=== PATIENT | female | born 1960 | race Caucasian/White ===

== ENCOUNTER 2016-10-08 02:38 | Emergency (ER) | payer BC ==
--- NOTE | 2016-10-08 04:01 | ED ---
Mallory Mcfarland Rebecca, scribed for Ermias Gunter MD on 10/08/16 at 0348 . Upper Extremity Pain - HPI Summary HPI Summary: Pt is a 56 y/o F who presents to ED c/o L wrist pain s/p fall. At approximately 0200 this morning the pt was walking outside without any lights and fell down 4 steps. Pain is currently severe, ranked 8/10 and aggravated by movement, alleviated by nothing. Has not taken anything to treat the pain though ice was applied upon arrival and assessment. 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 Severity Currently: Severe - 8/10 Pain Location: Wrist - Left Aggravating Factor(s): Movement Alleviating Factor(s): Nothing Associated Signs & Symptoms: Positive: Negative - Allergies/Home Medications Allergies/Adverse Reactions: Allergies Allergy/AdvReac Type Severity Reaction Status Date / Time No Known Allergies Allergy Verified 06/03/16 11:06 PMH/Surg Hx/FS Hx/Imm Hx Endocrine/Hematology History: Denies: Hx Diabetes Cardiovascular History: Reports: Hx Hypertension Denies: Hx Coronary Artery Disease - Cancer History Hx Chemotherapy: No Hx Radiation Therapy: No Infectious Disease History: No Infectious Disease History: Denies: Traveled Outside the [place] in Last 30 Days - Family History Known Family History: Positive: Other - TIA (mother), Parkinson's (brother) - Social History Alcohol Use: Daily Substance Use Type: Reports: None Smoking Status (MU): Heavy Every Day Tobacco Smoker Review of Systems Negative: Fever Positive: Arthralgia - L wrist pain s/p fall All Other Systems Reviewed And Are Negative: Yes Physical Exam Triage Information Reviewed: Yes Vital Signs On Initial Exam: Initial Vitals Temp Pulse Resp BP Pulse Ox 98.3 F 109 18 155/100 97 10/08/16 03:04 10/08/16 03:04 10/08/16 03:04 10/08/16 03:04 10/08/16 03:04 Vital Signs Reviewed: Yes Appearance: Positive: Well-Appearing, Pain Distress - mild discomfort Skin: Positive: Warm Head/Face: Positive: Normal Head/Face Inspection ENT: Positive: Hearing grossly normal Respiratory/Lung Sounds: Positive: Breath Sounds Present Musculoskeletal: Positive: Other - lt wrist mild diffuse swelling, painful movement nvi Neurological: Positive: Normal Gait - Mahanoy Plane Coma Scale Coma Scale Total: 15 Procedures - Splinting Hand-Made Type: orthoglass Splint: thumb spica Pre-Proc Neuro Vasc Exam: normal Post-Proc Neuro Vasc Exam: normal Diagnostics - Vital Signs Vital Signs Temp Pulse Resp BP Pulse Ox 10/08/16 03:04 98.3 F 109 18 155/100 97 - Laboratory Lab Statement: Any lab studies that have been ordered have been reviewed, and results considered in the medical decision making process. - Radiology L Wrist XR Xray Interpretation: Positive (See Comments) - Distal radial fracture Radiology Interpretation Completed By: ED Physician Course/Dx - Course Assessment/Plan: Pt is a 56 y/o F who presents to ED c/o L wrist pain s/p fall. At approximately 0200 this morning the pt was walking outside without any lights and fell down 4 steps. Pain is currently severe, ranked 8/10 and aggravated by movement, alleviated by nothing. Has not taken anything to treat the pain though ice was applied upon arrival and assessment. Wrist XR reveals a distal radial fracture, as read by ED physician. Splint was applied in the ED. Pt will be D/C to home with Dx of wrist fracture with an Rx for Motrin and a follow up with orthopedics. Pt understands and agrees. Elevated BP noted and advised to f/u with PCP. - Diagnoses Provider Diagnoses: Wrist fracture Discharge - Discharge Plan Condition: Improved Disposition: HOME Prescriptions: Ibuprofen TAB* [Motrin TAB* 600 MG] 600 mg PO Q6H #30 tab Patient Education Materials: Wrist Fracture in Adults (ED) Referrals: Alen Larsen MD [Medical Doctor] - (Follow up in 2-3 days. ) The documentation as recorded by the Mallory gatica Rebecca accurately reflects the service I personally performed and the decisions made by , Ermias Gunter MD.
[2016-10-08 04:23] VITALS: BP 139/92
--- NOTE | 2016-10-08 07:44 | RAD ---
INDICATION: Left wrist injury. TECHNIQUE: 3 views of the left wrist were obtained. FINDINGS: There is diffuse soft tissue swelling present. There is a comminuted impacted fracture of the distal radius. The fracture extends to the distal articular margin. There is slight distraction of some of the distal fracture fragments. In addition there is a calcific density which projects dorsally over the carpal bones possibly representing a carpal bone fracture versus soft tissue calcification. IMPRESSION: 1. COMMINUTED DISPLACED INTRA-ARTICULAR FRACTURE OF THE DISTAL RADIUS. 2. SMALL AREA OF CALCIFICATION DORSAL TO THE CARPAL BONES POSSIBLY REPRESENTING A CARPAL BONE FRACTURE VERSUS SOFT TISSUE SWELLING. CONSIDER A CT OF THE WRIST FOR FURTHER EVALUATION.
== END 2016-10-08 04:22 | disposition home or self-care (01) ==
LOC: ED 02:38
DX: S62.102A Fracture of unspecified carpal bone, left wrist, initial encounter for closed fracture (principal); W19.XXXA Unspecified fall, initial encounter; Y93.9 Activity, unspecified; Y92.9 Unspecified place or not applicable; Y99.9 Unspecified external cause status; F17.210 Nicotine dependence, cigarettes, uncomplicated
CPT/HCPCS: 99282

== ENCOUNTER 2016-10-21 06:57 | Day surgery (SDC) | payer BC ==
--- NOTE | 2016-10-20 11:04 | HP ---
PREOPERATIVE HISTORY AND PHYSICAL: DATE OF ADMISSION/SURGERY: 10/21/16 DATE OF OFFICE VISIT/ENCOUNTER: 10/19/16 ATTENDING SURGEON: Carolyn Posey MD * (DICTATED BY FLASH TEIXEIRA) PROCEDURE: Open reduction and internal fixation, left wrist. HISTORY OF PRESENT ILLNESS: This is a 56-year-old female who sustained injury to her left wrist on 10/08/16. She tripped up some stairs while going outside to look at stars in the middle of the night, it was dark and she fell down 2 to 3 steps and landed on her outstretched left arm. She was seen in the [facility] Emergency Room the next morning where x-rays were taken and she was diagnosed with a wrist fracture. She was referred to [facility] where she saw Dr. Bassett initially. He performed a closed reduction and referred the patient to Dr. Posey for further evaluation and treatment considerations. The patient had a CT scan that showed marked comminution at the distal radius and intraarticular involvement. It is an unstable fracture. The patient denies any associated numbness or tingling. After reviews of x-rays and CT scan and evaluation of the patient by Dr. Posey, Dr. Posey is recommending surgical intervention at this time in the form of an open reduction and internal fixation of the left wrist. The patient has consented to proceed. PAST MEDICAL HISTORY: Hypertension. PAST SURGICAL HISTORY: None. CURRENT MEDICATIONS: 1. Amlodipine besylate 2.5 mg daily. 2. Aspirin 325 mg p.r.n. pain. 3. Ibuprofen 600 mg t.i.d. p.r.n. pain. 4. Vitamin D 400 units/mL 1 mL daily. ALLERGIES: MORPHINE, the patient reports that it is not effective. FAMILY MEDICAL HISTORY: Noncontributory. SOCIAL HISTORY: The patient is not currently working. 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 She is a smoker. She smoked regularly up until 13 years ago, a half pack a day for 10 years. Currently, she still smokes on rare occasion. She denies recreational drug use. She admits to drinking alcohol on regular occasion, usually wine. REVIEW OF SYSTEMS: General: Negative for fevers, chills, or night sweats. No known anesthesia problems. HEENT: Negative for headache, lightheadedness, or syncopal episodes. Integumentary: Negative for abrasions, lesions, or open wounds. Cardiothoracic: Positive for hypertension. Negative for chest pain, palpitations, or edema. Pulmonary: Negative for shortness of breath with exertion, chronic cough, COPD. GI: Negative for nausea, vomiting, diarrhea, or constipation or GERD. : Negative for nocturia, urinary frequency, urgency , history of UTIs, or kidney problems. Musculoskeletal: Positive for current complaint. Negative for chronic or intermittent back pain or history of fractures. Neurological: Negative for paresthesias, numbness, history of seizure, stroke, or epilepsy. Endocrine: Negative for diabetes or thyroid issues. Hematologic: Negative for easy bruising, anemia, excessive bleeding, or history of DVT. Infectious Disease: Negative for history of MRSA, hepatitis C, or HIV. PHYSICAL EXAMINATION GENERAL: Well-developed, well-nourished 56-year-old female in no acute distress. VITAL SIGNS: Height 5 feet 9 inches, weight 145 pounds, blood pressure 138/88. HEENT: Normocephalic, atraumatic. Pupils are equal, round, and reactive to light and accommodation. NECK: Supple. No palpable lymph nodes. Throat is clear. PULMONARY: Lungs are clear to auscultation bilaterally. No wheezes, rales, or rhonchi. CARDIOVASCULAR: Regular rate and rhythm. S1, S2. No murmurs, rubs, or gallops. No edema. ABDOMEN: Positive bowel sounds, soft, nontender. MUSCULOSKELETAL: On exam of the patient's left wrist, it is maintained in a sugar tong splint. There is mild swelling in the fingers. She has good motion in her fingers and neurovascular function is intact. NEUROLOGICAL: Alert and oriented x3. Cranial nerves II through XII are intact. IMAGING STUDIES: X-ray and CT scan of the left wrist show a very distal intraarticular comminuted fracture of the distal radius. IMPRESSION: Left distal radius fracture. PLAN: The patient is scheduled to undergo an open reduction and internal fixation of her left wrist on 10/21/[address] Posey. She will return to the office 10 to 14 days postop for followup and suture removal. A prescription for Ultracet was e- scribed to the patient's pharmacy for postoperative pain management. FLASH TEIXEIRA [id number]/[facility] #: [id number] [facility]
[~2016-10-21 06:57] MED LIST: Buffered Lidocaine 0.9% SYRIN* 5 ML/SYR SYRINGE INTRADERM ONE; Ibuprofen TAB* 600 MG ONE; Ibuprofen TAB* 600 MG PO ONE; Sodium Citrate/Citric Acid* 15 ML UDC ONE; Sodium Citrate/Citric Acid* 15 ML UDC PO ONE
[2016-10-21] MEDS ORDERED: ceFAZolin 2 GM PREMIX (*) 50 ML IVPB ONE (07:26)
[2016-10-21] MEDS ORDERED: Bupivacaine 0.5% W/EPI SDV* 30 ML VIAL ONE (08:06)
[2016-10-21] MEDS ORDERED: Bupivacaine 0.5% SDV PF* 30 ML VIAL ONE (08:09)
[2016-10-21] MEDS ORDERED: fentaNYL* 50 MCG/ML 2 ML VIAL (100 MCG VIAL) ONE ×2 (08:19→09:28)
[2016-10-21] MEDS ORDERED: Midazolam* 1 MG/ML 5 ML VIAL (5 MG) ONE (08:24)
[2016-10-21] MEDS ORDERED: Bupivacaine 0.25% SDV* 30 ML ONE (08:26)
[2016-10-21] MEDS ORDERED: HYDROmorphone INJ* 1 MG/ML CARPUJECT SYRINGE IV PRN (09:17)
[2016-10-21] MEDS ORDERED: HYDROcodone/ACETAMIN 5-325 MG* 1 TAB PO PRN (09:17)
[2016-10-21] MEDS ORDERED: Ondansetron INJ* 2 MG/ML VIAL IV PRN (09:17)
[2016-10-21] MEDS ORDERED: DiMENhydriNATE IV* 50 MG/ML VIAL IV PUSH PRN (09:17)
[2016-10-21] MEDS ORDERED: fentaNYL* 50 MCG/ML 2 ML VIAL (100 MCG VIAL) IV PRN (09:17)
[2016-10-21] MEDS ORDERED: Propofol* 10 MG/ML 20 ML BTL IV PUSH ONE (09:28)
[2016-10-21 10:47] VITALS: BP 119/83
--- NOTE | 2016-10-21 14:48 | RAD ---
INDICATION: Left wrist fracture, trauma COMPARISONS: October 08, 2016 TECHNIQUE: Fluoroscopy was provided for a surgical procedure. Total fluoroscopy time is: 4 minutes, 21 seconds FINDINGS: Spot images demonstrate placement of a fixation plate across the left wrist. IMPRESSION: FLUOROSCOPY WAS PROVIDED FOR A SURGICAL PROCEDURE CPT II Codes: 6045F
--- NOTE | 2016-10-22 06:20 | OP ---
DATE OF OPERATION: 10/21/16 MERGED WITH [facility] DATE OF : 58 SURGEON: Carolyn Posey MD. ROLLED HAM LACER: FLASH Tillman. ANESTHESIA: Axillary block and sedation. PRE-OP DIAGNOSIS: Distal radius fracture of the left wrist. POST-OP DIAGNOSIS: Distal radius fracture of the left wrist. OPERATIVE PROCEDURE: Open reduction internal fixation of the left distal radius. ESTIMATED BLOOD LOSS: Zero. TOURNIQUET TIME: About 45 minutes. INDICATIONS FOR PROCEDURE: Linsey Naranjo is a 56-year-old woman who suffered a fracture of her left distal radius when she fell off the porch. She had a very comminuted DICTATION ENDS ABRUPTLY. [id number]/[facility] #: [id number] MTDD
--- NOTE | 2016-10-22 06:37 | OP ---
DATE OF OPERATION: 10/21/16 - [facility] DATE OF : 58 SURGEON: Carolyn Posey MD DIRECTOR OF REHABILITATION AND WELLNESS: FLASH Tillman ANESTHESIA: Axillary block. PRE-OP DIAGNOSIS: Distal radius fracture on the left. POST-OP DIAGNOSIS: Distal radius fracture on the left. OPERATIVE PROCEDURE: Open reduction and internal fixation of the left distal radius. ESTIMATED BLOOD LOSS: Zero. TOURNIQUET TIME: About 45 minutes. INDICATION FOR PROCEDURE: Linsey Naranjo is a 56-year-old woman who fell on to her outstretched left hand suffering a fracture of the distal radius, fracture is very comminuted and very distal. She had reduction done by Dr. Bassett but because of the unstable nature of the fracture, she presents for ORIF. DESCRIPTION OF PROCEDURE: The patient was brought to the operating room, was given an axillary block anesthetic and placed in the supine position on the operating table with tourniquet around the left upper arm. The skin of her left upper extremity was prepped and draped in the usual sterile fashion. The hand and forearm were exsanguinated and tourniquet elevated to 250 mmHg. Preliminary reduction was performed to assure that we get a good reduction. The hand was visualized on the AP and lateral views and found to be satisfactory. A 1-1/2 inch incision was made over the second metacarpal and a 2 -inch incision made over the mid aspect of the radius for the appropriate sides of the TriMed bridge plate. We dissected bluntly down to the periosteum of the second metacarpal and also bluntly down to the radius protecting the radial sensory nerve and splitting the ECRL and ECRB tendon. The plate was then found proximal to distal across the wrist joint while the fracture fragments were held in reduction. The plate was secured with 1 distal screw and 3 distal holes was placed on the distal aspect of the second metacarpal and then again the bone reduction was performed given the appropriate length through the fracture fragment. The plate was then secured with single screw in the proximal aspect of the plate and then used the distraction device to change the pressure off the fracture fragments at the articular surface. Next, we made sure that the fingers could be placed into the holes and the remainder of the screws were then placed in the distal portion of the plate and the proximal portion of the plate. With initial hardware and fracture fragments, we checked on the C- arm in the AP and lateral views and found to be satisfactory. There was good radial . Because of the very small nature of the fracture fragments, it was decided not to do any fragment fixation. The wounds were irrigated. Skin edges were reapproximated with 4-0 nylon suture. The wound was dressed with Xeroform, 4x4, Webril, and a sugar-tong splint. The patient tolerated the procedure well and was brought to the recovery room in good condition. [id number]/[facility] #: [id number] [facility]
--- NOTE | 2016-10-26 03:25 | OP ---
CC: Dr. Posey OPERATIVE REPORT: DATE OF OPERATION: 10/21/16 ADDENDUM: "There are 2 blanks in the operative note. The first one should say oval and the second one should say inclination." [id number]/[facility] #: [id number] TANK
== END 2016-10-21 11:04 | disposition home or self-care (01) ==
LOC: OREAST 06:57
PROVIDERS: ATTEND Orthopaedic Surgery
DX: S52.572A Other intraarticular fracture of lower end of left radius, initial encounter for closed fracture (principal); W10.9XXA Fall (on) (from) unspecified stairs and steps, initial encounter; Y92.9 Unspecified place or not applicable; I10 Essential (primary) hypertension; Z79.82 Long term (current) use of aspirin; Z88.5 Allergy status to narcotic agent; Z72.0 Tobacco use
CPT/HCPCS: 76000; A9270-GY; C1713; C1776; J0690; J2250; J2704; J3010

== ENCOUNTER 2016-11-01 15:24 | Emergency (ER) | payer BC ==
[2016-11-01 16:02] VITALS: BP 129/95
--- NOTE | 2016-11-01 17:47 | UC ---
Skin Complaint HPI - HPI Summary HPI Summary: WAS SHAVING TODAY AROUND NOON WHEN SHE NICKED HER LEFT MEDIAL ANKLE WITH THE RAZOR. HAS A TINY ABRASION BUT STATES SHE COULD NOT GET IT TO STOP BLEEDING AT HOME SO SHE CAME IN HERE. IS REQUESTING SKIN GLUE. UTD TETANUS. AT TIME OF EXAM BLEEDING HAS STOPPED. - History of Current Complaint Chief Complaint: UCLaceration Time Seen by Provider: 11/01/16 16:18 Stated Complaint: LEG LACERATION Hx Obtained From: Patient Onset/Duration: Sudden Onset, Lasting Hours, Still Present Timing: Constant Onset Severity: Mild Current Severity: None Pain Intensity: 0 Pain Scale Used: 0-10 Numeric Location: Discrete - LEFT MEDIAL ANKLE Aggravating Factor(s): Nothing Alleviating Factor(s): Other - ELEVATION AND PRESSURE Associated Signs & Symptoms: Positive: Negative - Allergy/Home Medications Allergies/Adverse Reactions: Allergies Allergy/AdvReac Type Severity Reaction Status Date / Time OPIOIDS Allergy Severe See Comment Uncoded 11/01/16 16:02 Review of Systems Constitutional: Negative Skin: Other - TINY ABRASION Respiratory: Negative Cardiovascular: Negative Gastrointestinal: Negative All Other Systems Reviewed And Are Negative: Yes PMH/Surg Hx/FS Hx/Imm Hx Cardiovascular History: Hypertension - Surgical History Surgical History: Yes Surgery Procedure, Year, and Place: ORIF LEFT FOREARM - Family History Known Family History: Positive: Other - TIA (mother), Parkinson's (brother) - Social History Alcohol Use: Occasionally Alcohol Amount: 2 glasses wine with dinner Substance Use Type: None Smoking Status (MU): Current Every Day Smoker Amount Used/How Often: reports down to 2 cigs per day (was 1 ppd for 25 years) Physical Exam Triage Information Reviewed: Yes Appearance: Well-Appearing, No Pain Distress, Well-Nourished Vital Signs: Initial Vital Signs Temp 97.9 F 11/01/16 15:56 Pulse 90 11/01/16 15:56 Resp 16 11/01/16 15:56 BP 129/95 11/01/16 15:56 Pulse Ox 99 11/01/16 15:56 Vital Signs Reviewed: Yes Eyes: Positive: Conjunctiva Clear ENT: Positive: Hearing grossly normal Neck: Positive: Supple Respiratory: Positive: No respiratory distress, No accessory muscle use Cardiovascular: Positive: Pulses Normal Abdomen Description: Positive: Soft Musculoskeletal: Positive: No Edema Neurological: Positive: Alert Psychological: Positive: Age Appropriate Behavior Skin: Positive: Other - PINPOINT ABRASION LEFT MEDIAL ANKLE. NO ACTIVE BLEEDING Course/Dx - Course Course Of Treatment: SKIN GLUE APPLIED. NO ACTIVE BLEEDING AT DISCHARGE - Diagnoses Provider Diagnoses: ABRASION LEFT MEDIAL ANKLE Discharge - Discharge Plan Condition: Stable Disposition: HOME Patient Education Materials: Abrasion (ED) Referrals: Brittny Wei MD [Primary Care Provider] - If Needed Additional Instructions: GLUE APPLIED. SEEK FOLLOW-UP IF YOU DEVELOP SPREADING REDNESS OF THE SKIN, PURULENT DRAINAGE, FEVER, INCREASED PAIN OR ANY OTHER CONCERNING SYMPTOMS.
== END 2016-11-01 17:06 | disposition home or self-care (01) ==
LOC: UCEAST 15:24
DX: S91.012A Laceration without foreign body, left ankle, initial encounter (principal); I10 Essential (primary) hypertension; F17.210 Nicotine dependence, cigarettes, uncomplicated; W45.8XXA Other foreign body or object entering through skin, initial encounter; Y93.89 Activity, other specified; Y92.89 Other specified places as the place of occurrence of the external cause; Z88.5 Allergy status to narcotic agent
CPT/HCPCS: 99211; G0463

== ENCOUNTER 2017-01-17 10:45 | Day surgery (SDC) | payer BC ==
--- NOTE | 2017-01-10 20:02 | HP ---
PREOPERATIVE HISTORY AND PHYSICAL: DATE OF SURGERY/ADMISSION: 01/17/17 [facility] DATE OF OFFICE VISIT/ENCOUNTER: 01/09/17 ATTENDING SURGEON: Carolyn Posey MD * (DICTATED BY FLASH TEIXEIRA) PROCEDURE: Right wrist plate removal. CHIEF COMPLAINT: Retained hardware, left wrist. HISTORY OF PRESENT ILLNESS: This is a 56-year-old female who underwent open reduction and internal fixation of her left wrist on 10/21/16; a TriMed bridge plate was placed. Her most recent x-rays showed the fracture to be healed. She is now scheduled to have the TriMed bridge plate removed and has consented to proceed with the surgery. PAST MEDICAL HISTORY: Hypertension. PAST SURGICAL HISTORY: Open reduction and internal fixation, left wrist. CURRENT MEDICATIONS: 1. Amlodipine besylate 5 mg daily. 2. Aspirin 325 mg p.r.n. pain. 3. Ibuprofen 600 mg t.i.d. p.r.n. pain. 4. Vitamin D 400 units/mL 1 mL daily. ALLERGIES: MORPHINE, the patient reports that it is not affective. FAMILY MEDICAL HISTORY: Noncontributory. SOCIAL HISTORY: The patient is not currently working. 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 She is a smoker. She smoked regularly up until 13 years ago approximately half a pack a day for 10 years. Currently, she still smokes on rare occasion. She denies recreational drug use. She admits to drinking alcohol on regular occasion usually wine. REVIEW OF SYSTEMS: General: Negative for fevers, chills, or night sweats. No known anesthesia problems. HEENT: Negative for headache, lightheadedness, or syncopal episodes. Integumentary: Negative for abrasions, lesions, or open wounds. Cardiothoracic: Positive for hypertension. Negative for chest pain, palpitations, or edema. Pulmonary: Negative for shortness of breath with exertion, chronic cough, or COPD. GI: Negative for nausea, vomiting, diarrhea , constipation, or GERD. : Negative for nocturia, urinary frequency, urgency , history of UTIs, or kidney problems. Musculoskeletal: Positive for current complaint. Negative for chronic or intermittent back pain. Neurological: Negative for paresthesias, numbness, history of seizures, stroke, or epilepsy. Endocrine: Negative for diabetes or thyroid issues. Hematologic: Negative for easy bruising, anemia, excessive bleeding, or history of DVT. Infectious Disease: Negative for history of MRSA, hepatitis C, or HIV. PHYSICAL EXAMINATION GENERAL: Well-developed, well-nourished, 56-year-old female, in no acute distress. VITAL SIGNS: Height is 5 feet 9 inches, weight 145 pounds, blood pressure 136/ 80. HEENT: Normocephalic, atraumatic. Pupils are equal, round, and reactive to light and accommodation. Throat is clear. NECK: Supple. No palpable lymph nodes. PULMONARY: Lungs are clear to auscultation bilaterally. No wheezes, rales, or rhonchi. CARDIOVASCULAR: Regular rate and rhythm. S1 and S2. No murmurs, rubs, or gallops. No edema. ABDOMEN: Positive bowel sounds, soft, nontender. MUSCULOSKELETAL: On exam of the left wrist, she has a well-healed surgical incision. She has good motion in her fingers. She can make a good fist. She has some limitations of her wrist motion. Neurovascular function is intact. IMAGING DATA: X-rays of the left wrist, AP and lateral showed the bridge plate to be in good position and the fracture has healed. IMPRESSION: Status post open reduction and internal fixation left wrist with bridge plate presenting for planned removal. PLAN: The patient is scheduled to undergo a left wrist plate removal with Dr. Posey on 01/17/17. She will return to the office in 10 to 14 days postop for follow up and suture removal. The patient will plan on using [id number] medications for postoperative pain management. She needs something stronger than that, it will be prescribed. FLASH TEIXEIRA [id number]/[facility] #: [id number] TANK
[~2017-01-17 10:45] MED LIST changes: +Famotidine IV* 10 MG/ML 2 ML (20 mg) ONE; -Ibuprofen TAB* 600 MG ONE; -Ibuprofen TAB* 600 MG PO ONE; -Sodium Citrate/Citric Acid* 15 ML UDC ONE; -Sodium Citrate/Citric Acid* 15 ML UDC PO ONE
[2017-01-17] MEDS ORDERED: fentaNYL* 50 MCG/ML 2 ML VIAL (100 MCG VIAL) ONE (12:00)
[2017-01-17] MEDS ORDERED: Midazolam* 1 MG/ML 2 ML VIAL (2 MG) ONE (12:00)
[2017-01-17] MEDS ORDERED: Bupivacaine 0.5% SDV PF* 30 ML VIAL ONE (12:12)
[2017-01-17] MEDS ORDERED: Lidocaine 0.5%* 50 ML SDV ONE (12:20)
[2017-01-17] MEDS ORDERED: Dexamethasone IV* 4 MG/ML 1 ML (4 MG) ONE (12:48)
[2017-01-17] MEDS ORDERED: Propofol* 10 MG/ML 20 ML BTL IV PUSH ONE (12:48)
[2017-01-17] MEDS ORDERED: Ketorolac INJ* 30 MG/ML 1 ML VIAL ONE (12:48)
[2017-01-17] MEDS ORDERED: Lidocaine 2% PF * 5 ML VIAL ONE (12:48)
[2017-01-17 13:35] VITALS: BP 127/87
--- NOTE | 2017-01-18 04:39 | OP ---
DATE OF OPERATION: 01/17/17 [facility] DATE OF : 58 SURGEON: Dr. Posey. MARKET RESEARCH ANALYST: FLASH Tillman ANESTHESIOLOGIST: Dr. Albarran ANESTHESIA: IV regional. PRE-OP DIAGNOSIS: Status post bridge plate of the left wrist for comminuted intra- articular distal radial fracture. POST-OP DIAGNOSIS: Status post bridge plate of the left wrist for comminuted intra- articular distal radial fracture. OPERATIVE PROCEDURE: Removal of the plate from the left wrist. ESTIMATED BLOOD LOSS: Zero. TOURNIQUET TIME: About 25 minutes. INDICATIONS FOR PROCEDURE: Linsey Naranjo is a 56-year-old woman who suffered a fracture of her distal radius, which was very comminuted and intra-articular. She had a bridge plate placed 3 months ago and presents now for removal of the plate. DESCRIPTION OF PROCEDURE: The patient was brought to the operating room and was given IV regional anesthetic with a tourniquet around her left upper arm. The skin of her left upper extremity was prepped and draped in the usual sterile fashion. The hand and forearm were exsanguinated and tourniquet elevated to 250 mmHg prior to instillation of the anesthetic. The scars were both incised and we carefully dissected down to the plate. The screws were removed with the appropriate screw drivers and the plate was slit out through the proximal incision. The wounds were copiously irrigated with saline and the skin edges were reapproximated with 4-0 nylon suture. The wound was dressed with Xeroform, 4x4, Webril, and a volar splint. The patient tolerated the procedure well and was brought to the recovery room in good condition. [id number]/[facility] #: [id number] [facility]
== END 2017-01-17 13:56 | disposition home or self-care (01) ==
LOC: OREAST 10:45
PROVIDERS: ATTEND Orthopaedic Surgery
DX: Z47.2 Encounter for removal of internal fixation device (principal); S52.572D Other intraarticular fracture of lower end of left radius, subsequent encounter for closed fracture with routine healing; F17.210 Nicotine dependence, cigarettes, uncomplicated; I10 Essential (primary) hypertension; X58.XXXD Exposure to other specified factors, subsequent encounter; Y92.9 Unspecified place or not applicable
CPT/HCPCS: 88300; J1100; J1885; J2250; J2704; J3010